=== PATIENT | female | born 1965 | race Caucasian/White ===

== ENCOUNTER → 2016-08-29 | Outpatient (CLI) | payer OTHER ==
[~2016-08-29] MED LIST: ATENOLOL50 MG PO; CHILDREN'S ASPI81 M1 PO; CLARITIN-D 21 TABLET PO; CLARITIN10 MG PO; CLONAZEPAM0.5 MG PO; FLEXERIL10 MG PO; FLONASE16 G1 BOTH NARES; FLUOXETINE HCL20 MG PO; KLONOPIN1 MG PO; LORATADINE10 M2 PO; MULTI-VITAMIN1 EAC4 PO; PROZAC20 MG PO; PROZAC40 MG PO; SIMVASTATIN40 MG PO; TENORMIN50 MG PO; XANAX1 MG PO; ZANAFLEX2 M1 PO
== END | disposition home or self-care (01) ==
LOC: CDC 12:29
DX: Z01.810 Encounter for preprocedural cardiovascular examination (principal)
CPT/HCPCS: 93000

== ENCOUNTER 2016-09-06 08:19 | Day surgery (SDC) | payer OTHER ==
[~2016-09-06] VITALS: Ht 157.5 cm; Wt 61.2 kg
[2016-09-06 09:26] LABS: AMPHETAMINES QUANT VALUE 0 NG/ML; BARBITUATES QUANT VALUE 0 NG/ML; BENZODIAZEPINES, URINE SCREEN POSITIVE (200 ng/mL); OPIATES QUANTITATIVE VALUE 0 NG/ML; PHENCYCLIDINE QUANT VALUE 0 NG/ML
[2016-09-06 12:23] VITALS: BP 114/60
[2016-09-06 13:05] VITALS: BP 135/66
== END 2016-09-06 13:25 | disposition home or self-care (01) ==
LOC: SDC
PROVIDERS: Obstetrics & Gynecology Gynecology
DX: N95.0 Postmenopausal bleeding (principal); N84.0 Polyp of corpus uteri; N85.4 Malposition of uterus; Z82.49 Family history of ischemic heart disease and other diseases of the circulatory system; Z82.3 Family history of stroke; Z84.1 Family history of disorders of kidney and ureter; Z83.3 Family history of diabetes mellitus; Z83.49 Family history of other endocrine, nutritional and metabolic diseases; Z82.0 Family history of epilepsy and other diseases of the nervous system
CPT/HCPCS: 80306 90; 88305; J1100; J1885; J2405; J3010

== ENCOUNTER 2016-11-22 19:55 | Emergency (ER) | payer OTHER ==
[~2016-11-22] VITALS: Ht 157.5 cm; Wt 59.7 kg
[2016-11-22] MEDS ORDERED: KEFLEX500 MG PO (21:17)
[2016-11-22 21:30] VITALS: BP 100/51
== END 2016-11-22 22:04 | disposition home or self-care (01) ==
LOC: EME 19:55
DX: S80.862A Insect bite (nonvenomous), left lower leg, initial encounter (principal); L03.116 Cellulitis of left lower limb; W57.XXXA Bitten or stung by nonvenomous insect and other nonvenomous arthropods, initial encounter
CPT/HCPCS: 99281; 99284

== ENCOUNTER 2017-02-25 12:12 | Day surgery (SDC) | payer OTHER ==
[~2017-02-25] VITALS: Ht 154.9 cm; Wt 57.1 kg
[~2017-02-25 12:12] MED LIST changes: +FLONASE ALLERG9.9 ML BOTH NARES; +KEFLEX500 MG PO; +NIZORAL A-D200 ML TP; +ZANAFLEX2 MG PO; +ZOCOR40 MG PO
== END 2017-02-25 14:20 | disposition home or self-care (01) ==
LOC: PAIN 12:12 → SDC 12:30 → PAIN 12:30
DX: M47.16 Other spondylosis with myelopathy, lumbar region (principal); M51.06 Intervertebral disc disorders with myelopathy, lumbar region; F41.8 Other specified anxiety disorders; E78.5 Hyperlipidemia, unspecified; M48.06 Spinal stenosis, lumbar region; I47.1 Supraventricular tachycardia
CPT/HCPCS: J1030; J2250; J3010; S0020

== ENCOUNTER 2017-03-04 12:35 | Day surgery (SDC) | payer OTHER ==
[~2017-03-04] VITALS: Ht 154.9 cm; Wt 57.1 kg
== END 2017-03-04 14:23 | disposition home or self-care (01) ==
LOC: PAIN 12:35
DX: M47.16 Other spondylosis with myelopathy, lumbar region (principal); M51.06 Intervertebral disc disorders with myelopathy, lumbar region; M54.5 Low back pain; G89.29 Other chronic pain; F41.8 Other specified anxiety disorders; E78.5 Hyperlipidemia, unspecified; M48.06 Spinal stenosis, lumbar region; M79.1 Myalgia; I47.1 Supraventricular tachycardia; F12.90 Cannabis use, unspecified, uncomplicated
CPT/HCPCS: J1030; J2250; J3010; S0020